=== PATIENT | male | born 1950 | race Caucasian/White ===

== ENCOUNTER 2021-06-24 10:27 | Outpatient (CLI) | payer MEDICARE, BC ==
[~2021-06-24] VITALS: Ht 182.9 cm; Wt 103.0 kg
[2021-06-24 11:04] VITALS: BP 121/73; PULSE 97
[2021-06-24 11:19] VITALS: BP 110/66; PULSE 95; TEMP 97.1
[2021-06-24] MEDS ORDERED: GLUCOPHAGE1000 MG PO (11:21)
[2021-06-24] MEDS ORDERED: NEURONTIN300 MG/CAP PO (11:21)
[2021-06-24] MEDS ORDERED: VITAMIN C500 MG PO (11:22)
[2021-06-24] MEDS ORDERED: COMPLETE MULTI1 TAB PO (11:22)
[2021-06-24] MEDS ORDERED: THE MEDICINE S200 M2 PO (11:23)
[2021-06-24] MEDS ORDERED: VITAMIN D31000 I1 PO (11:23)
[2021-06-24] MEDS ORDERED: OSTEO-BI-FLEX 21 TAB PO (11:23)
[2021-06-24] MEDS ORDERED: EPA FISH OIL1 SGL PO (11:24)
[2021-06-24 11:45] VITALS: BP 121/49; PULSE 88
[2021-06-24 12:00] VITALS: BP 136/78; PULSE 92
[2021-06-24 12:30] VITALS: BP 123/70; PULSE 90
[2021-06-24 12:45] VITALS: BP 126/69; PULSE 84
--- NOTE | 2021-06-24 13:10 | NUR ---
Pt tolerated infusion without issue. 1 hr obs time completed. INT Dc'd with catheter intact. He was escorted out to ED entrance with steady gait.
== END 2021-06-24 13:45 | disposition home or self-care (01) ==
LOC: EUO 10:27
DX: U07.1 COVID-19 (principal); E66.9 Obesity, unspecified; E11.9 Type 2 diabetes mellitus without complications
CPT/HCPCS: M0243; Q0244

== ENCOUNTER 2023-05-25 10:45 | Outpatient (RCR) | payer SELFPAY ==
[~2023-05-25 10:45] MED LIST: COMPLETE MULTI1 TAB PO; EPA FISH OIL1 SGL PO; GLUCOPHAGE1000 MG PO; NEURONTIN300 MG/CAP PO; OSTEO-BI-FLEX 21 TAB PO; THE MEDICINE S200 M2 PO; VITAMIN C500 MG PO; VITAMIN D31000 I1 PO
== END 2023-05-26 | disposition home or self-care (01) ==
LOC: MKS.ESL.PT
DX: E11.42 Type 2 diabetes mellitus with diabetic polyneuropathy (principal)